=== PATIENT | female | born 1930 | race Caucasian/White ===

== ENCOUNTER → 2017-09-13 | Outpatient (CLI) | payer MEDICARE, OTHER ==
[~2017-09-13] MED LIST: AMLODIPINE BESYL5 MG PO; CANDESARTAN PO; DICYCLOMINE PO; IPRATROPIU0.2 MG/1 M; MAGNESIUM500 MG PO; MULTIVITAMIN1 EAC1 PO; OMEGA FISH OIL PO; REGADENOSON 0.4 MG/5 ML SYR IV ONE; XARELTO10 MG PO; Z ESTRACE VG; Z RYTHMOL PO; Z.0.CITRACAL + D C1 PO; Z.0.DIGOXIN125 MCG PO; Z.0.LEXAPRO10 MG PO; Z.0.LIPITOR10 MG PO; Z.0.LORAZEPAM1 MG PO; Z.0.NIACIN500 MG PO; Z.0.PREVACID30 MG PO; Z.0.SYNTHROID75 MCG PO; [UNRECOGNIZED DRUG - CODE] PO; [UNRECOGNIZED DRUG - OTHER] PO
--- NOTE | 2017-09-13 15:20 | Diagnostic Imaging Report ---
EXAMINATION: Head and face CT without contrast. HISTORY: Status post fall, head and face trauma, history of prior stroke COMPARISON: None. TECHNIQUE: Multidetector axial images were obtained without contrast from the foramen magnum to the vertex and over the face. The images were reconstructed using brain and bone algorithms. Thin section brain images were reformatted into coronal and sagittal planes. Intravenous contrast: None. Head CT findings: Skull: No lytic or blastic lesions. No fractures. Forehead midline and right forehead swelling/hematoma without underlying fractures. Parenchyma: A few scattered white matter hypodensities, most likely nonspecific chronic microvascular ischemic changes, likely age appropriate. No mass, hemorrhage or CT evidence of acute vascular insult. Brain volume: Normal for age. Ventricles: No hydrocephalus or displacement. Arteries: No density suggestive of thrombus. Dural sinuses: No abnormal density. Extra-axial spaces: No abnormal density. Foramen magnum: No mass, Chiari malformation, or basilar invagination. Sella: No obvious mass. Paranasal/mastoid sinuses: Imaged portions unremarkable. Face CT findings: Bones: Questionable tiny nondisplaced horizontal fracture line through the left nasal bone. Otherwise no acute displaced facial fractures Facial soft tissues: Forehead and mild periorbital soft tissue swelling Orbits contents: Unremarkable. Paranasal sinuses and drainage pathways: Clear and patent. Nasal septum and nasal cavities: Midline. Anatomic variations: No significant anatomic variations. Teeth: No acute abnormality of the visualized teeth. Upper cervical spine: Partially visualized prominent facet arthrosis in the upper cervical spine. IMPRESSION: 1. No acute post traumatic intracranial abnormalities, particularly no hemorrhage. 2. Questionable tiny nondisplaced left nasal bone fracture, otherwise no acute facial fractures. 3. Right forehead soft tissue swelling/hematoma without underlying fractures. Signed by: Dr. Maggie Han M.D. on 09/13/2017 3:16 PM
== END ==
LOC: NM 09:54
PROVIDERS: ATTEND Internal Medicine Cardiovascular Disease
DX: I20.8 Other forms of angina pectoris (principal)
CPT/HCPCS: 70450; 70486; 78452; 93017; A9502

== ENCOUNTER → 2018-01-04 | Outpatient (CLI) | payer MEDICARE, OTHER ==
[~2018-01-04] MED LIST changes: -REGADENOSON 0.4 MG/5 ML SYR IV ONE
--- NOTE | 2018-01-04 10:29 | Diagnostic Imaging Report ---
PROCEDURE: CT CHEST WITHOUT CONTRAST CT scan of the chest WITHOUT intravenous contrast, using standard protocol. TECHNIQUE: The chest was scanned utilizing a multidetector helical scanner from the apex to the level of the adrenal glands. No IV contrast was administered because of nodule protocol. Coronal and sagittal multiplanar reformations were obtained. COMPARISON: None. INDICATIONS: LUNG NODULES FINDINGS: Lines/tubes: None. Lungs and Airways: Stable 3 mm left lower lobe nodule (series 3 image 85) and 4 mm left right lower lobe nodule (series 3 image 86). additional 4-5 mm juxtapleural lower lobe nodules in the right lower lobe (series 3 image 81) are also unchanged. 4 mm nodule laterally within the left lower lobe (series 3 image 88) unchanged. 3 mm right middle lobe nodule described on the comparison is not identified on the current study. No airspace consolidation. Juxtapleural reticular opacities in the lower lobes are again noted, likely reflective of subsegmental atelectasis. No gross fibrotic change. 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 Pleura: The pleural spaces are clear. Heart and mediastinum: Visualized portions of the thyroid gland are normal. No axillary, hilar, or mediastinal lymphadenopathy. Left subclavian approach implantable cardiac device body and leads are unchanged. No pericardial effusion. No ectasia or aneurysmal dilatation of the thoracic aorta. Pulmonary outflow tract is of normal caliber. Soft tissues: Normal. Abdomen: Visualized portions of the liver, spleen, adrenals, and upper poles of the kidneys are unremarkable. Bones: Degenerative changes of the spine. No osseous destructive lesions. IMPRESSION: Stable bilateral pulmonary nodules measuring up to 4 mm as above. Dictated by: Anoop Pruitt M.D. on 01/04/2018 at 10:34 Electronically approved by: Anoop Pruitt M.D. on 01/04/2018 at 10:34
== END ==
LOC: CT 09:25
PROVIDERS: ATTEND Internal Medicine Pulmonary Disease
DX: R91.8 Other nonspecific abnormal finding of lung field (principal)
CPT/HCPCS: 71250

== ENCOUNTER → 2018-07-04 | Outpatient (CLI) | payer MEDICARE, OTHER ==
[~2018-07-04] MED LIST changes: +DIATRIZOATE MEGL/DIATRIZOA SOD 30 ML BTL PO ONE; +IOPAMIDOL 370 MG/ML 200 ML INFUS..BTL INJ ONE; +SODIUM CHLORIDE 0.9% 50ML 50 ML ONE
[2018-07-04 09:52] LABS: BLOOD UREA NITROGEN 13 mg/dL (7-26); BUN/CREATININE RATIO 17 (6-25); CREATININE, SERUM 0.78 mg/dL (0.57-1.11); EST GLOMERULAR FILTRATION RATE > 60 ML/MIN (60-)
--- NOTE | 2018-07-04 10:58 | Diagnostic Imaging Report ---
EXAM: CT Abdomen and Pelvis WITH contrast INDICATION: Abdominal Pain COMPARISON: None. TECHNIQUE: Abdomen and pelvis were scanned utilizing a multidetector helical scanner from the lung base to the pubic symphysis after administration of IV contrast. Coronal and sagittal reformations were obtained. Routine protocol was performed. Scan was performed when during portal venous phase. IV CONTRAST: 100 cc of Isovue 370 ORAL CONTRAST: Water COMPLICATIONS: None RADIATION DOSE: Total DLP: 666.9 mGy*cm CTDIvol has been reviewed. It is below the limits set by the Radiation Protocol Committee (RPC). Dose modulation, iterative reconstruction, and/or weight based adjustment of the mA/kV was utilized to reduce the radiation dose to as low as reasonably achievable. FINDINGS: LINES and TUBES: None. LOWER THORAX: Partially seen AICD lead. Mild cardiomegaly. HEPATOBILIARY: Diffuse mild fatty liver. Subcentimeter left hepatic lobe hypodensity is too small to characterize, but likely represents a cyst. No biliary ductal dilation. Status post cholecystectomy. Punctate calcification at the posterior right hepatic lobe could represent calcified granuloma if parenchymal or dropped gallstone if extra-parenchymal. SPLEEN: No splenomegaly. There are multiple subcentimeter splenic hypodensities. PANCREAS: No evidence of ductal dilatation. Punctate 3 mm hypodensities within the pancreatic tail. ADRENALS: No adrenal nodules KIDNEYS/URETERS: Kidneys enhance symmetrically. No evidence of hydronephrosis, solid mass, or stone. GI TRACT: Mild wall thickening with the ascending colon and transverse colon. No evidence of distention. Appendix is surgically absent per the patient. Small hiatal hernia. Mild circumferential wall thickening at the GE junction. PELVIC ORGANS/BLADDER: Unremarkable. LYMPH NODES: No lymphadenopathy. VESSELS: There are scattered atherosclerotic calcifications in the aorta and branch vessels. PERITONEUM / RETROPERITONEUM: No free air or fluid. BONES AND SOFT TISSUES: Partially seen findings of left total hip arthroplasty. No acute osseous abnormality or suspicious lytic or blastic lesions. Degenerative changes of the visualized spine. CONCLUSION: Mild ascending and transverse colonic wall thickening, which could represent infectious or inflammatory colitis. Small hiatal hernia with mild circumferential wall thickening at the GE junction. While incompletely characterized on CT, this may reflect gastroesophageal reflux/esophagitis, and if clinically indicated could be evaluated with endoscopy. Punctate pancreatic tail hypodensities could reflect side branch IPMNs. Abdominal MRI may be considered for further evaluation. Multiple splenic hypodensities are indeterminate but may represent hemangiomas or cysts. Signed by: Dr. Cali Bojorquez MD on 07/04/2018 10:55 AM
== END ==
LOC: CT 08:54
PROVIDERS: ATTEND Internal Medicine Gastroenterology
DX: K52.89 Other specified noninfective gastroenteritis and colitis (principal); K52.29 Other allergic and dietetic gastroenteritis and colitis; R19.7 Diarrhea, unspecified
CPT/HCPCS: 36415; 74177; 82565; 84520; Q9967

== ENCOUNTER → 2018-08-22 | Day surgery (SDC) | payer MEDICARE, OTHER ==
--- NOTE | 2018-08-17 13:05 | Diagnostic Imaging Report ---
EXAMINATION: CHEST 2 VIEWS INDICATION: Pre-op. COMPARISON: None FINDINGS: TUBES and LINES: Left-sided pacemaker with leads terminating overlying the right atrium and right ventricle. LUNGS: Lungs are mildly hyperinflated. Lungs are clear. There is no evidence of pneumonia or pulmonary edema. PLEURA: No pleural effusion or pneumothorax. HEART AND MEDIASTINUM: The cardiomediastinal silhouette is mildly enlarged. BONES AND SOFT TISSUES: No acute osseous abnormality. UPPER ABDOMEN: No free air under the diaphragm. IMPRESSION: No acute radiographic abnormality. Mild cardiomegaly. Signed by: Dr. Cali Bojorquez MD on 08/17/2018 1:02 PM
[2018-08-17 13:15] LABS: BASOPHILS % 0.4 % (0.0-1.0); EOSINOPHILS # (AUTO) 0.1 (0.0-0.4); EOSINOPHILS % 0.8 % (0.0-6.0); HEMATOCRIT 35.7 % (34.2-44.1); HEMOGLOBIN 11.8 g/dL (12.0-16.0); LYMPHOCYTES # (AUTO) 2.2 (1.0-3.2); LYMPHOCYTES % 25.3 % (18.0-39.1); MEAN CORPUSCULAR HEMOGLOBIN 32.7 pg (28-32); MEAN CORPUSCULAR HGB CONC 33.1 g/dL (31-35); MEAN CORPUSCULAR VOLUME 98.9 fL (81-99); MONOCYTES # (AUTO) 0.8 (0.2-0.8); MONOCYTES % 9.8 % (4.4-11.3); NEUTROPHILS # (AUTO) 5.4 (2.1-6.9); NEUTROPHILS % 63.2 % (38.7-80.0); PLATELET COUNT 227 x10e3/uL (140-360); RED BLOOD COUNT 3.61 x10e6/uL (3.6-5.1); RED CELL DISTRIBUTION WIDTH 16.2 % (11.7-14.4)
[~2018-08-22] MED LIST changes: +BUPIVACAINE HCL 0.5% 10ML MPF VIAL INJ ONE; +CENTRUM SILVER1 EAC3 PO; +COLESTIPOL HCL1 GM PO; -DIATRIZOATE MEGL/DIATRIZOA SOD 30 ML BTL PO ONE; +DICYCLOMINE HCL10 MG PO; +IOPAMIDOL 200 MG/ML 20 ML VIAL IT ONE; -IOPAMIDOL 370 MG/ML 200 ML INFUS..BTL INJ ONE; +LIDOCAINE HCL 1% LOCAL INJ 20 ML VIAL ONE; +PROPOFOL IV EMULSION 10 MG/ML 20 ML VIAL ONE; +REFRESH CLASSI1 EACH OU; -SODIUM CHLORIDE 0.9% 50ML 50 ML ONE; +SOTALOL80 MG PO; +TRIAMCINOLONE ACET 40 MG/ML VIAL ONE
--- OUTSIDE RECORDS SUMMARY | 2018-08-22 07:48 | XMS REPORT ---
Author Author [facility] Address Unknown Phone Unavailable Care Team Providers Care Hand Sign Writer Name Role Phone ADRIANA BELL Unavailable Unavailable RADHA ALLRED Unavailable Unavailable ADRIANA PAULA Unavailable Unavailable GLORIA KELLEY Unavailable Unavailable Problems This patient has no known problems. Allergies, Adverse Reactions, Alerts This patient has no known allergies or adverse reactions. Medications This patient has no known medications. Results Test Description Test Time Test Comments Text Results Atomic Results Result Comments CHEST 2 VIEWS 2018-08-17 12:56:00 [place] [address] Patient Name: JAMES HARVEY MR #: [id number] : 1930 Age/Sex: 88/F Req #: [id number] Adm Physician: Ordered by: ADRIANA BELL MD Report #: [id number] Location: OR Room/Bed: Procedure: [id number] DX/CHEST 2 VIEWS Exam Date: Exam Time: REPORT STATUS: Signed EXAMINATION: CHEST 2 VIEWS INDICATION: Pre-op. COMPARISON: None FINDINGS: TUBES and LINES: Left-sided pacemaker with leads terminating overlying the right atrium and right ventricle. LUNGS: Lungs are mildly hyperinflated. Lungs are clear. There is no evidence of pneumonia or pulmonary edema. PLEURA: No pleural effusion or pneumothorax. HEART AND MEDIASTINUM: The cardiomediastinal silhouette is mildly enlarged. BONES AND SOFT TISSUES: No acute osseous abnormality. UPPER ABDOMEN: No free air under the diaphragm. IMPRESSION: No acute radiographic abnormality. Mild cardiomegaly. Signed by: Dr. Lv Padilla MD on 08/17/2018 1:02 PM Dictated By: LV PADILLA MD 1302 Transcribed By: FAIZAN on 08/17/18 1302 COPY TO: ADRIANA BELL MD CT ABDOMEN/PELVIS W 2018-07-04 10:40:00 [place] [address] Patient Name: JAMES HARVEY MR #: [id number] : 1930 Age/Sex: 88/F Req #: [id number] Adm Physician: Ordered by: RADHA ALLRED MD Report #: [id number] Location: CT Room/Bed: Procedure: [id number] CT/CT ABDOMEN/PELVIS W Exam Date: 07/04/18 Exam Time: 0950 REPORT STATUS: Signed EXAM: CT Abdomen and Pelvis WITH contrast INDICA TION: Abdominal Pain COMPARISON: None. TECHNIQUE: Abdomen and pelvis were scanned utilizing a multidetector helical scanner from the lung base to the pubic symphysis after administration of IV contrast. Coronal and sagittal reformations were obtained. Routine protocol was performed. Scan was performed when during portal venous phase. IV CONTRAST: 100 cc of Isovue 370 ORAL CONTRAST: Water COMPLICATIONS: None RADIATION DOSE: Total DLP: 666.9 mGy*cm CTDIvol has been reviewed. It is below the limits set by the Radiation Protocol Committee (RPC). Dose modulation, iterative reconstruction, and/or weight based adjustment of the mA/kV was utilized to reduce the radiation dose to as low as reasonably achievable. FINDINGS: LINES and TUBES: None. LOWER THORAX: Partially seen AICD lead. Mild cardiomegaly. HEPATOBILIARY: Diffuse mild fatty liver. Subcentimeter left hepatic lobe hypodensity is too small to phan racterize, but likely represents a cyst. No biliary ductal dilation. Status post cholecystectomy. Punctate calcification at the posterior right hepatic lobe could represent calcified granuloma if parenchymal or dropped gallstone if extra-parenchymal. SPLEEN: No splenomegaly. There are multiple subcentimeter splenic hypodensities. PANCREAS: No evidence of ductal dilatation. Punctate 3 mm hypodensities within the pancreatic tail. ADRENALS: No adrenal nodules KIDNEYS/URETERS: Kidneys enhance symmetrically. No evidence of hydronephrosis, solid mass, or stone. GI TRACT: Mild wall thickening with the ascending colon and transverse colon. No evidence of distention. Appendix is surgically absent per the patient. Small hiatal hernia. Mild circumferential wall thickening at the GE junction. PELVIC ORGANS/BLADDER: Unremarkable. LYMPH NODES: No lymphadenopathy. VESSELS: There are scattered atherosclerotic calcifications in the aorta and branch vessels. PERITONEUM / RETROPERITONEUM: No free air or fluid. BONES AND SOFT TISSUES: Partially seen findings of left total hip arthroplasty. No acute osseous abnormality or suspicious lytic or blastic lesions. Degenerative changes of the visualized spine. CONCLUSION: Mild ascending and transverse colonic wall thickening, which could represent infectious or inflammatory colitis. Small hiatal hernia with mild circumferential wall thickening at the GE junction. While incompletely characterized on CT, this may reflect gastroesophageal reflux/esophagitis, and if clinically indicated could be evaluated with endoscopy. Punctate pancreatic tail hypodensities could reflect side branch IPMNs. Abdominal MRI may be considered for further evaluation. Multiple splenic hypodensities are indeterminate but may represent hemangiomas or cysts. Signed by: Dr. Lv Padilla MD on 07/04/2018 10:55 AM Dictated By: LV PADILLA MD 1053 Transcribed By: FAIZAN on 07/04/18 1050 COPY TO: RADHA ALLRED MD BREAST ULTRASOUND BILATERAL 2018-04-06 08:08:33 - BREAST ULTRASOUND BILATERALULTRASOUND OF BOTH BREASTS AND BOTH AXILLA: 04/05/2018CLINICAL: Abnormal mammogram. Comparison is made to exams dated 03/28/2018 mammogram, 06/12/2016 mammogram, and [facility] Real-time ultrasound of both breasts and both axilla was performed. No abnormalities were seen sonographically in either breast or either axilla. IMPRESSION: NEGATIVE There is no sonographic evidence of malignancy. Resume annual screening mammography in one year. Keyanna Cadena M.D. dm/:04/06/2018 08:08:33 copy to: Giuseppe Lira MD, ph: [phone], fax: [phone] Technologist: Miriam Swift , [facility]-letter sent: BIRADS 1-2 Normal Ultrasound BI- RADS: 1 Negative SCR MAMM BILATERAL AYO CAD DIGITAL 2018-03-29 09:08:24 - SCR MAMM BILATERAL AYO CAD DIGITALBILATERAL DIGITAL SCREENING MAMMOGRAM 3D/2D WITH CAD: 03/28/2018CLINICAL: Asymptomatic. Digital breast tomosynthesis was performed in addition to routine CC and MLO views. Current mammographic images were evaluated by either a [employer]Vu or a [employer] CAD (computer aided detection system). Comparison is made to exams dated 06/12/2016 mammogram, 06/07 mammogram, 06/05/2014 mammogram, 05/01/2013 mammogram, and 04/25/2012 [facility]. The tissue of both breasts is heterogeneously dense. This may lower the sensitivity of mammography. There is architectural distortion in the left breast at 1 o'clock. No other significant masses, calcifications, or other findings are seen in either breast. IMPRESSION: INCOMPLETE ASSESSMENT: ADDITIONAL IMAGING EVALUATION RECOMMENDEDThe architectural distortion in the left breast needs further evaluation. An ultrasound is recommended. Keyanna Cadena M.D. dm/:03/29/2018 09:08:24 copy to: Giuseppe Lira MD, ph: [phone], fax: [phone] Technologist: Richmond Hollingsworth FW, [facility]-FWletter sent: Additional Imaging Mammogram BI-RADS: 0 Indeterminate SCR MAMM BILATERAL AYO CAD DIGITAL 2018-03-29 09:08:24 - SCR MAMM BILATERAL AYO CAD DIGITALBILATERAL DIGITAL SCREENING MAMMOGRAM 3D/2D WITH CAD: 03/28/2018CLINICAL: Asymptomatic. Digital breast tomosynthesis was performed in addition to routine CC and MLO views. Current mammographic images were evaluated by either a [employer] M-Vu or a [employer] CAD (computer aided detection system). Comparison is made to exams dated 06/12/2016 mammogram, 06/07 mammogram, 06/05/2014 mammogram, 05/01/2013 mammogram, and 04/25/2012 mammogram - [facility]-. The tissue of both breasts is heterogeneously dense. This may lower the sensitivity of mammography. There is architectural distortion in the left breast at 1 o'clock. No other significant masses, calcifications, or other findings are seen in either breast. IMPRESSION: INCOMPLETE ASSESSMENT: ADDITIONAL IMAGING EVALUATION RECOMMENDEDThe architectural distortion in the left breast needs further evaluation. An ultrasound is recommended. Keyanna Cadena M.D. dm/:03/29/2018 09:08:24 copy to: Giuseppe Lira MD, ph: [phone], fax: [phone] Technologist: Richmond DICKERSON, [facility]-FWletter sent: Additional Imaging Mammogram BI-RADS: [address] CHEST WO 2018-01-04 10:34:00 [place] [address] Patient Name: JAMES HARVEY MR #: [id number] : 1930 Age/Sex: 87/F Req #: [id number] [facility] Physician: Ordered by: ADRIANA PAULA MD Report #: [id number] Location: CT Room/Bed: Procedure: CT/CT CHEST WO Exam Date: 01/04/18 Exam Time: 954 REPORT STATUS: Signed PROCEDURE: CT CHEST WITHOUT CONTRAST CT scan of the chest WITHOUT intravenous contrast, using standard protocol. TECHNIQUE: The chest was scanned utilizing a multidetector helical scanner from the apex to the level of the adrenal glands. No IV contrast was administered because of nodule protocol. Coronal and sagittal multiplanar reformations were obtained. COMPARISON: None. INDICATIONS: LUNG NODULES FINDINGS: Lines/tubes: None. Lungs and Airways: Stable 3 mm left lower lobe nodule (series 3 image 85) and 4 mm left right lower lobe nodule (series 3 image 86). additional 4-5 mm juxtapleural lower lobe nodules in the right lower lobe (series 3 image 81) are also unchanged. 4 mm nodule laterally within the left lower lobe (series 3 image 88) unchanged. 3 mm right middle lobe nodule described on the comparison is not identified on the current study. No airspace consolidation. Juxtapleural reticular opacities in the lower lobes are again noted, likely reflective of subsegmental atelectasis. No gross fibrotic change. 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 Pleura: The pleural spaces are clear. Heart and mediastinum: Visualized portions of the thyroid gland are normal. No axillary, hilar, or mediastinal lymphadenopathy. Left subclavian approach implantable cardiac device body and leads are unchanged. No pericardial effusion. No ectasia or aneurysmal dilatation of the thoracic aorta. Pulmonary outflow tract is of normal caliber. Soft tissues: Normal. Abdomen: Visualized portions of the liver, spleen, adrenals, and upper poles of the kidneys are unremarkable. Bones: Degenerative changes of the spine. No osseous destructive lesions. IMPRESSION: Stable bilateral pulmonary nodules measuring up to 4 mm as above. Dictated by: Adriana Toro M.D. on 01/04/2018 at 10:34 Electronically approved by: Adriana Toro M.D. on 01/04/2018 at 10:34 Dictated By: ADRIANA TORO MD 1034 Transcribed By: LUIS FELIPE on 01/04/18 1034 COPY TO: ADRIANA PAULA MD CT BRAIN WO [place] [address] Patient Name: JAMES HARVEY MR #: [id number] : 1930 [facility] 87[id number] Req #: [id number] Adm Physician: Ordered by: GLORIA KELLEY MD Report #: [id number] Location: [place] Room/Bed: Procedure: [id number] CT/CT BRAIN WO Exam Date: 09/13/17 Exam Time: 1410 REPORT STATUS: Signed EXAMINATION: Head and face CT without contrast. HISTORY: Status post fall, head and face trauma, history of prior stroke COMPARISON: None. TECHNIQUE: Multidetector axial images were obtained without contrast from the foramen magnum to the vertex and over the face. The images were reconstructed using brain and bone algorithms. Thin section brain images were reformatted into coronal and sagittal planes. Intravenous contrast: None. Head CT findings: Skull: No lytic or blastic lesions. No fractures. Forehead midline and right forehead swelling/hematoma without underlying fractures. Parenchyma: A few scattered white matter hypodensities, most likely nonspecific chronic microvascular ischemic changes, likely age appropriate. No mass, hemorrhage or CT evidence of acute vascular insult. Brain volume: Normal for age. Ventricles: No hydrocephalus or displacement. Arteries: No density suggestive of thrombus. Dural sinuses: No abnormal density. Extra-axial spaces: No abnormal density. Foramen magnum: No mass, Chiari malformation, or basilar invagination. Sella: No obvious mass. Paranasal/mastoid sinuses: Imaged portions unremarkable. Face CT findings: Bones: Questionable tiny nondisplaced horizontal fracture line through the left nasal bone. Otherwise no acute displaced facial fractures Facial soft tissues: Forehead and mild periorbital soft tissue swelling Orbits contents: Unremarkable. Paranasal sinuses and drainage pathways: Clear and patent. Nasal septum and nasal cavities: Midline. Anatomic variations: No significant anatomic variations. Teeth: No acute abnormality of the visualized teeth. Upper cervical spine: Partially visualized prominent facet arthrosis in the upper cervical spine. IMPRESSION: 1. No acute post traumatic intracranial abnormalities, particularly no hemorrhage. 2. Questionable tiny nondisplaced left nasal bone fracture, otherwise no acute facial fractures. 3. Right forehead soft tissue swelling/hematoma without underlying fractures. Signed by: Dr. Angelia Han M.D. on 09/13/2017 3:16 PM Dictated By: ANGELIA HAN MD 15 Transcribed By: FAIZAN on 09/13/171515 COPY TO: GLORIA KELLEY MD CT MAXIO FAC/PARANAS WO [place] [address] Patient Name: JAMES HARVEY MR #: [id number] : 1930 Age/Sex: 87/F Req #: [id number] Adm Physician: Ordered by: GLORIA KELLEY MD Report #: [id number] Location: [place] Room/Bed: Procedure: [id number] CT/CT MAXIO FAC/PARANAS WO Exam Date: 09/13/17 Exam Time: 1410 REPORT STATUS: Signed EXAMINATION: Head and face CT without contrast. HISTORY: Status post fall, head and face trauma, history of prior stroke COMPARISON: None. TECHNIQUE: Multidetector axial images were obtained without contrast from the foramen magnum to the vertex and over the face. The images were reconstructed using brain and bone algorithms. Thin section brain images were reformatted into coronal and sagittal planes. Intravenous contrast: None. Head CT findings: Skull: No lytic or blastic lesions. No fractures. Forehead midline and right forehead swelling/hematoma without underlying fractures. Parenchyma: A few scattered white matter hypodensities, most likely nonspecific chronic microvascular ischemic changes, likely age appropriate. No mass, hemorrhage or CT evidence of acute vascular insult. Brain volume: Normal for age. Ventricles: No hydrocephalus or displacement. Arteries: No density suggestive of thrombus. Dural sinuses: No abnormal density. Extra-axial spaces: No abnormal density. Foramen magnum: No mass, Chiari malformation, or basilar invagination. Sella: No obvious mass. Paranasal/mastoid sinuses: Imaged portions unr emarkable. Face CT findings: Bones: Questionable tiny nondisplaced horizontal fracture line through the left nasal bone. Otherwise no acute displaced facial fractures Facial soft tissues: Forehead and mild periorbital soft tissue swelling Orbits contents: Unremarkable. Paranasal sinuses and drainage pathways: Clear and patent. Nasal septum and nasal cavities: Midline. Anatomic variations: No significant anatomic variations. Teeth: No acute abnormality of the visualized teeth. Upper cervical spine: Partially visualized prominent facet arthrosis in the upper cervical spine. IMPRESSION: 1. No acute post traumatic intracranial abnormalities, particularly no hemorrhage. 2. Questionable tiny nondisplaced left nasal bone fracture, otherwise no acute facial fractures. 3. Right forehead soft tissue swelling/hematoma without underlying fractures. Signed by: Dr. Angelia Han M.D. on 09/13/2017 3:16 PM Dictated By: ANGELIA HAN MD 1514 Transcribed By: FAIZAN on 09/13/17 1516 COPY TO: GLORIA KELLEY MD
[2018-08-22 10:25] VITALS: BP 118/61
--- NOTE | 2018-08-23 15:48 | Operative Report ---
DATE OF PROCEDURE: 08/22/2018 SURGEON: Anoop Christian MD PREOPERATIVE DIAGNOSIS: Osteoarthritis, right hip. POSTOPERATIVE DIAGNOSIS: Osteoarthritis, right hip. PROCEDURE: Fluoroscopic-guided right hip corticosteroid injection. INDICATIONS: The patient is an 88-year-old lady, who has advanced osteoarthritis of her right hip. She is not interested in proceeding with a right hip replacement, but would like to try a corticosteroid injection. The risks and benefits of a fluoroscopic-guided corticosteroid injection was explained. She states she understands and wishes to proceed. DESCRIPTION OF PROCEDURE: The patient was brought to the procedure room. She was given some IV sedation. Her right hip was prepped and draped in a sterile manner. A preoperative time-out was performed. A C-arm image intensifier was used to assist in placing a spinal needle into the inferior recess of the right hip. A small amount of radiopaque dye was injected to confirm intra-articular positioning. This was followed by a mixture of 9 mL of 0.5% Marcaine without epinephrine and 40 mg of Kenalog. The needle was retrieved and a Band-Aid was applied. She was transported to the recovery room in stable condition. There was no blood loss. Anoop Christian MD DR/MARKUS /[id number]
== END | disposition home or self-care (01) ==
LOC: OR 07:46
PROVIDERS: ATTEND Specialist
DX: M16.11 Unilateral primary osteoarthritis, right hip (principal); M47.816 Spondylosis without myelopathy or radiculopathy, lumbar region; I10 Essential (primary) hypertension; Z01.812 Encounter for preprocedural laboratory examination; Z01.818 Encounter for other preprocedural examination; Z96.642 Presence of left artificial hip joint; Z88.5 Allergy status to narcotic agent; Z88.0 Allergy status to penicillin; Z88.2 Allergy status to sulfonamides; Z95.0 Presence of cardiac pacemaker
CPT/HCPCS: 20610; 36415; 71046; 77002; 85025; J2704; J3301; Q9967; 76000; J2001

== ENCOUNTER → 2018-08-31 | Day surgery (SDC) | payer MEDICARE, OTHER ==
[~2018-08-31] MED LIST changes: -BUPIVACAINE HCL 0.5% 10ML MPF VIAL INJ ONE; -IOPAMIDOL 200 MG/ML 20 ML VIAL IT ONE; -LIDOCAINE HCL 1% LOCAL INJ 20 ML VIAL ONE; -PROPOFOL IV EMULSION 10 MG/ML 20 ML VIAL ONE; +PROPOFOL IV EMULSION 10 MG/ML 50 ML VIAL ONE; -TRIAMCINOLONE ACET 40 MG/ML VIAL ONE
[2018-08-31 11:25] VITALS: BP 148/77
--- NOTE | 2018-08-31 12:31 | Operative Report ---
DATE OF PROCEDURE: 08/31/2018 SURGEON: Nelson Stevenson MD PROCEDURES: Esophagogastroduodenoscopy with esophageal dilatation, esophageal brushings and biopsies. INDICATIONS FOR PROCEDURE: Dysphagia. MEDICATIONS: The patient was done under MAC, please see anesthesiologist's note. PROCEDURE IN DETAIL: With the patient in left lateral decubitus position the flexible fiberoptic Olympus gastroscope was introduced into the esophagus under direct visualization without any difficulty. There was some scattered whitish plaques noted in esophagus, brushings were obtained and sent to stain for Alice. Grade 1 to 2 esophageal varices were noted without active bleeding or stigmata of recent hemorrhage. A mild stricture was noted at the GE junction, which was dilated to size 52-Marshallese Gallo and biopsied. The scope was then advanced with ease into the stomach traversing a small sliding hiatal hernia. Mucosa overlying the antrum and the body revealed some patchy erythema and low-grade to moderate edema and biopsies were obtained and sent to stain for H pylori. The pylorus was of normal contour and shape, it was intubated with ease and the scope was advanced all the way to the second portion of the duodenum. The scope was then withdrawn slowly and mucosa overlying the proximal second portion and the duodenal bulb appeared to be within normal limits. The scope was then withdrawn back into the stomach and retroflexed. Mucosa overlying the fundus and cardia appeared to be within normal limits. The scope was then straightened out, it was subsequently withdrawn. The patient tolerated the procedure well. IMPRESSION: 1. Rule out Alice esophagitis. 2. Grade 1 to 2 esophageal varices without active bleeding or stigmata of recent hemorrhage. 3. Esophageal stricture at GE junction dilated to size 52-Marshallese Gallo and biopsied. 4. Small sliding hiatal hernia. 5. Gastritis, biopsied. Biopsies sent to stain for Helicobacter pylori. PLAN: Follow up histology. Initiate Protonix 40 mg one p.o. q.a.m. a.c. Nelson Stevenson MD [facility] /[id number] cc: Giuseppe Lira MD
== END | disposition home or self-care (01) ==
LOC: OR 06:38
PROVIDERS: ATTEND Internal Medicine Gastroenterology
DX: I85.00 Esophageal varices without bleeding (principal); R13.10 Dysphagia, unspecified; K44.9 Diaphragmatic hernia without obstruction or gangrene; K29.70 Gastritis, unspecified, without bleeding; K22.2 Esophageal obstruction; K21.0 Gastro-esophageal reflux disease with esophagitis; R12 Heartburn; Z86.010 Personal history of colon polyps; Z88.5 Allergy status to narcotic agent; Z88.0 Allergy status to penicillin; Z88.2 Allergy status to sulfonamides; E03.9 Hypothyroidism, unspecified; F41.9 Anxiety disorder, unspecified; R06.02 Shortness of breath
CPT/HCPCS: 43239; 43450; 87205; 88305; 88312; J2704; 43235

== ENCOUNTER → 2019-12-26 | Outpatient (CLI) | payer MEDICARE, OTHER ==
[~2019-12-26] MED LIST changes: +IOPAMIDOL 370 MG/ML 200 ML INFUS..BTL INJ ONE; -PROPOFOL IV EMULSION 10 MG/ML 50 ML VIAL ONE; +SODIUM CHLORIDE 0.9% 50ML 50 ML ONE
[2019-12-26 09:28] LABS: BLOOD UREA NITROGEN 11 mg/dL (7-26); BUN/CREATININE RATIO 14 (6-25); CREATININE, SERUM 0.81 mg/dL (0.57-1.11); EST GLOMERULAR FILTRATION RATE > 60 ML/MIN (60-)
--- NOTE | 2019-12-26 10:52 | Diagnostic Imaging Report ---
EXAMINATION: CT of the abdomen and pelvis with contrast. TECHNIQUE: Spiral CT images of the abdomen and pelvis were performed from the lung bases to the lesser trochanters after the intravenous administration of 100 cc of Isovue 370. Coronal and sagittal reformatted images were obtained. COMPARISON: CT abdomen and pelvis with contrast 07/04/2018 CLINICAL HISTORY:Interval bowel syndrome with diarrhea, pancreatic cyst DISCUSSION: ABDOMEN/PELVIS: LOWER THORAX:Minimal linear and reticular opacities in the dependent portions of the lower lobes compatible with scar or subsegmental atelectasis. 3 mm nodules in the lateral segment of the left lower lobe seen on series 2 image 2 and image 4 are unchanged compared to prior. Calcified granuloma in the lingula also unchanged. Right ventricular implantable cardiac device lead is partially visualized. HEPATOBILIARY: Hepatic parenchyma is diffusely hypoattenuating compatible with steatosis. Subcentimeter hypoattenuating subcapsular lesion posteriorly within segment 3 is too small to further characterize though likely represent a small cyst. This is unchanged compared to prior. Otherwise, No focal hepatic lesion or intrahepatic biliary ductal dilatation. Status post cholecystectomy. SPLEEN: Multiple hypoattenuating lesions within the spleen measure up to 1 cm and appears stable compared to the prior examination. PANCREAS: Subcentimeter hypoattenuating lesion in the pancreatic tail described on the comparison examination is less conspicuous on the current study. Subcentimeter lipomatous lesion in the pancreatic head is unchanged. ADRENALS: No adrenal nodules. KIDNEYS/URETERS: Subcentimeter hypoattenuating lesions in the left kidney are too small to further characterize but likely represent small cysts. No hydronephrosis or calculi. PELVIC ORGANS/BLADDER: Pelvic organs are poorly evaluated secondary to beam hardening artifact from left hip prosthesis. The uterus is anteflexed and appears normal. Engorgement of the left ovarian vein is unchanged. Bilateral tubal ligation devices. No adnexal mass. PERITONEUM/RETROPERITONEUM: No ascites or pneumoperitoneum. LYMPH NODES: No pelvic sidewall, retroperitoneal, or mesenteric lymphadenopathy. VESSELS: Atherosclerotic calcification of the abdominal aorta without aneurysmal dilatation. Portal vein, splenic vein, and central superior mesenteric vein are patent. GI TRACT: The large bowel shows no evidence of distention or wall thickening. There are a few diverticula scattered along the course of the descending and sigmoid colon, with all wall thickening or adjacent inflammatory change. The appendix is not definitively identified. No small bowel dilatation to suggest obstruction. Small sliding hiatal hernia. BONES AND SOFT TISSUE: Status post total left hip arthroplasty. Advanced degenerative arthrosis of the right hip. Multilevel degenerative disc changes of the lumbar spine. No osseous destructive lesions. No focal soft tissue abnormalities. IMPRESSION: No acute intra-abdominal or pelvic CT abnormalities. Pancreatic tail hypodensities described on the comparison study are less conspicuous on the current examination. Subcentimeter hypoattenuating splenic lesions are grossly stable and may reflect cysts or hemangiomas as previously discussed. Sigmoid diverticulosis without findings of diverticulitis. Small sliding hiatal hernia, stable compared to prior. Signed by: Dr. Anoop Pruitt M.D. on 12/26/2019 10:49 AM
== END ==
LOC: CT 08:26
PROVIDERS: ATTEND Internal Medicine Gastroenterology
DX: K58.0 Irritable bowel syndrome with diarrhea (principal); K86.2 Cyst of pancreas
CPT/HCPCS: 36415; 74177; 82565; 84520; Q9967